=== PATIENT | female | born 1955 | race African-American/Black ===

== ENCOUNTER 2021-01-05 10:14 | Inpatient (IN) | payer BC ==
[~2021-01-05] VITALS: Ht 153.7 cm; Wt 66.7 kg
[2021-01-05] MEDS ORDERED: MAGNESIUM/ALUMINUM HYDROXIDE/SIMETHICONE 30ML UDC PO STA (10:56)
[2021-01-05] MEDS ORDERED: VISCOUS LIDOCAINE 2% 15 ML UDC PO STA (10:56)
[2021-01-05] MEDS ORDERED: ONDANSETRON HCL 4MG/2ML INJ IV STA (10:56)
[2021-01-05] MEDS ORDERED: PANTOPRAZOLE SODIUM 40 MG/VIAL IV STA (10:56)
[2021-01-05] MEDS ORDERED: SODIUM CHLORIDE 0.9% 1,000 ML IV ONE (11:00)
[2021-01-05 12:11] LABS: HEMATOCRIT. 40.2 % (36.0-48.0); HEMOGLOBIN. 13.8 g/dL (12.0-16.0); MEAN CORPUSCULAR HEMOGLOBIN 28.7 pg (28.0-32.0); MEAN CORPUSCULAR VOLUME 83.5 fL (81.0-99.0); MEAN PLATELET VOLUME 6.4 fl (7.4-10.4); PLATELET 755 x1000/uL (130-400); RED BLOOD CELL COUNT 4.82 mill/uL (4.2-5.4); RED CELL DISTRIBUTION WIDTH 12.5 % (11.6-14.6)
[2021-01-05 12:14] LABS: CHLORIDE 83 mEq/L (98-107)
[2021-01-05 12:18] LABS: ETHANOL BLOOD < 10 mg/dL
[2021-01-05 12:20] LABS: CLARITY URINE CLOUDY (CLEAR); COLOR URINE DARK YELLOW (YELLOW); KETONES URINE TRACE (NEGATIVE); LEUKOCYTE ESTERASE URINE 2+ (NEGATIVE); NITRITE URINE NEGATIVE (NEGATIVE); OCCULT BLOOD URINE TRACE (NEGATIVE); PROTEIN URINE TRACE (NEGATIVE); SPECIFIC GRAVITY URINE 1.017 (1.005-1.030)
[2021-01-05 12:37] LABS: *BENZODIAZEPINES SCREEN URINE NEGATIVE (NEGATIVE); PHENCYCLIDINE URINE SCREEN NEGATIVE (NEGATIVE)
[2021-01-05 12:39] LABS: *COCAINE SCREEN URINE NEGATIVE (NEGATIVE); METHADONE URINE SCREEN NEGATIVE (NEGATIVE)
[2021-01-05 12:40] LABS: *BARBITURATES SCREEN URINE NEGATIVE (NEGATIVE)
[2021-01-05 12:45] LABS: CANNABINOID URINE SCREEN NEGATIVE (NEGATIVE)
[2021-01-05 12:47] LABS: *AMPHETAMINES SCREEN URINE NEGATIVE (NEGATIVE)
[2021-01-05 12:54] LABS: OPIATES URINE SCREEN NEGATIVE (NEGATIVE)
[2021-01-05] MEDS ORDERED: LOPERAMIDE HCL 2MG CAPSULE PO NR (13:30)
[2021-01-05 13:36] LABS: PLATELET ESTIMATE INCREASED
[2021-01-05] MEDS ORDERED: CEFTRIAXONE 1 G PREMIX 50 ML IV ONE (13:45)
[2021-01-05 20:00] VITALS: BP 128/79
[2021-01-05] MEDS ORDERED: ACETAMINOPHEN 325MG TABLET PO PRN ×2 (20:00)
[2021-01-05] MEDS ORDERED: DIPHENHYDRAMINE 50MG/ML VIAL IV PRN (20:00)
[2021-01-05] MEDS ORDERED: CEFTRIAXONE 1 G PREMIX 50 ML IV SCH (20:00)
[2021-01-05] MEDS ORDERED: ONDANSETRON HCL 4MG/2ML INJ IV PRN (20:00)
[2021-01-05 20:16] VITALS: BP 128/79
[2021-01-05] MEDS ORDERED: LOPERAMIDE HCL 2MG CAPSULE PO PRN (20:30)
[2021-01-05] MEDS: SODIUM CHLORIDE 0.9% 1,000 ML IV SCH (21:24)
[2021-01-06] VITALS: BP 132/70
[2021-01-06 04:00] VITALS: BP 112/79
[2021-01-06] MEDS: SODIUM CHLORIDE 0.9% 1,000 ML IV SCH ×3 (06:08→20:00)
[2021-01-06 07:19] LABS: BASOPHILS % 0.1 % (0.0-2.0); EOSINOPHILS % 0.1 % (0.0-5.0); HEMATOCRIT. 38.6 % (36.0-48.0); HEMOGLOBIN. 12.9 g/dL (12.0-16.0); LYMPHOCYTES % 7.2 % (20.0-50.0); MEAN CORPUSCULAR HEMOGLOBIN 28.5 pg (28.0-32.0); MEAN CORPUSCULAR VOLUME 85.4 fL (81.0-99.0); MEAN PLATELET VOLUME 6.2 fl (7.4-10.4); MONOCYTES % 6.6 % (2.0-8.0); PLATELET 696 x1000/uL (130-400); RED BLOOD CELL COUNT 4.52 mill/uL (4.2-5.4); RED CELL DISTRIBUTION WIDTH 12.6 % (11.6-14.6)
[2021-01-06 07:37] LABS: CHLORIDE 92 mEq/L (98-107)
[2021-01-06 07:50] LABS: PHOSPHORUS 2.9 mg/dL (2.5-4.9)
[2021-01-06 08:33] VITALS: BP 102/63
[2021-01-06 12:00] VITALS: BP 99/59
[2021-01-06] MEDS: CEFTRIAXONE 1,000 MG in DEXTROSE 5% WATER 50 ML IV SCH (12:46)
[2021-01-06 16:00] VITALS: BP 122/83
[2021-01-06 20:00] VITALS: BP 121/75
[2021-01-07] VITALS: BP 118/84
[2021-01-07 04:00] VITALS: BP 124/71
[2021-01-07] MEDS: SODIUM CHLORIDE 0.9% 1,000 ML IV SCH ×2 (04:00→08:56)
[2021-01-07 07:36] LABS: CHLORIDE 99 mEq/L (98-107)
[2021-01-07 07:47] LABS: PHOSPHORUS 2.4 mg/dL (2.5-4.9)
[2021-01-07 08:00] VITALS: BP 124/84
[2021-01-07] MEDS ORDERED: SODIUM BICARBONATE 4% (2.4MEQ) 5ML VIAL IV ONE (10:30)
[2021-01-07] MEDS ORDERED: LIDOCAINE HCL 1% 20ML VIAL (Pyxis) INJ ONE (10:30)
[2021-01-07] MEDS ORDERED: POTASSIUM CHLORIDE 20MEQ TABLET SR PO SCH (11:30)
[2021-01-07 12:00] VITALS: BP 103/65
[2021-01-07] MEDS: CEFTRIAXONE 1,000 MG in DEXTROSE 5% WATER 50 ML IV SCH (14:14)
[2021-01-07 16:22] VITALS: BP 110/69
[2021-01-07 20:00] VITALS: BP 152/89
[2021-01-08] VITALS (9 sets, daily range): BP systolic 89–117; BP diastolic 55–87
[2021-01-08] MEDS ORDERED: MORPHINE SULFATE 2 MG/ML CPJ (NOT FOR IM USE) IV PRN (06:30)
[2021-01-08] MEDS ORDERED: MIDAZOLAM HCL 2 MG/2 ML VIAL ONE (07:35)
[2021-01-08] MEDS ORDERED: FENTANYL CITRATE/PF 50MCG/ML 2ML VIAL ONE (07:35)
[2021-01-08] MEDS ORDERED: PROPOFOL 200MG/20ML VIAL IV ONE (07:35)
[2021-01-08] MEDS ORDERED: ONDANSETRON HCL 4MG/2ML INJ ONE (07:36)
[2021-01-08] MEDS ORDERED: DEXAMETHASONE 4MG/ML 1ML VIAL ONE (07:36)
[2021-01-08] MEDS ORDERED: LABETALOL 5MG/ML SYR 20 MG/4 ML SYRINGE IV PRN (07:45)
[2021-01-08] MEDS ORDERED: ONDANSETRON HCL 4MG/2ML INJ IV PRN (07:45)
[2021-01-08] MEDS ORDERED: HYDROMORPHONE HCL/PF 2MG/ML CPJ IV PRN (07:45)
[2021-01-08] MEDS ORDERED: MEPERIDINE HCL/PF 25MG/ML CPJ IV PRN (07:45)
[2021-01-08] MEDS ORDERED: IPRATROPIUM/ALBUTEROL 0.5-3(2.5)MG/3ML NEB HHN PRN (12:15)
[2021-01-08] MEDS: CEFTRIAXONE 1,000 MG in DEXTROSE 5% WATER 50 ML IV SCH ×2 (13:41→18:04)
[2021-01-08] MEDS ORDERED: ATENOLOL 25MG TABLET PO NR (14:30)
[2021-01-08] MEDS ORDERED: SODIUM CHLORIDE 0.9% 500 ML IV ONE (16:53)
[2021-01-08] MEDS ORDERED: SODIUM CHLORIDE 0.9% 500 ML IV NR (17:00)
== END 2021-01-08 20:45 | disposition home or self-care (01) | DRG 744 ==
LOC: ER 10:18 → MICUSO 13:33 → 6WST 17:36
PROVIDERS: ADMIT Internal Medicine; ATTEND Internal Medicine
PROC: 0W9G3ZZ Drainage of Peritoneal Cavity, Percutaneous Approach (ICD-10-PCS; 2021-01-07)
PROC: 0UDB7ZZ Extraction of Endometrium, Via Natural or Artificial Opening (ICD-10-PCS; principal; 2021-01-08)
DX: C54.1 Malignant neoplasm of endometrium (principal); E43 Unspecified severe protein-calorie malnutrition; N17.9 Acute kidney failure, unspecified; E87.1 Hypo-osmolality and hyponatremia; N39.0 Urinary tract infection, site not specified; R18.8 Other ascites; C79.89 Secondary malignant neoplasm of other specified sites; E86.0 Dehydration; Z20.822 Contact with and (suspected) exposure to COVID-19; N13.5 Crossing vessel and stricture of ureter without hydronephrosis; I10 Essential (primary) hypertension; Z98.891 History of uterine scar from previous surgery; Z68.28 Body mass index [BMI] 28.0-28.9, adult
CPT/HCPCS: 36415; 49083; 74176; 76830; 76856; 80048; 80053; 80305; 80320; 81003; 83735; 84100; 85025; 86304; 87426; 88108; 88305; 88312; 93005; 99285; C1893; C9113; J0696; J1100; J2250; J2270; J2405; J2704; J3010; J3490; J7030; J7040; J7060; G0480

== ENCOUNTER 2021-01-10 12:08 | Inpatient (IN) | payer BC ==
[~2021-01-10] VITALS: Ht 165.1 cm; Wt 79.4 kg
[2021-01-10] MEDS ORDERED: FAMOTIDINE 20MG/2ML VIAL IV STA (12:30)
[2021-01-10] MEDS ORDERED: MORPHINE SULFATE 4 MG/ML CPJ (NOT FOR IM USE) IV STA (12:30)
[2021-01-10] MEDS ORDERED: SODIUM CHLORIDE 0.9% 1,000 ML IV ONE (12:30)
[2021-01-10] MEDS ORDERED: ONDANSETRON HCL 4MG/2ML INJ IV STA (12:30)
[2021-01-10 12:53] LABS: HEMATOCRIT. 38.1 % (36.0-48.0); HEMOGLOBIN. 13.1 g/dL (12.0-16.0); MEAN CORPUSCULAR HEMOGLOBIN 29.2 pg (28.0-32.0); MEAN CORPUSCULAR VOLUME 85.2 fL (81.0-99.0); MEAN PLATELET VOLUME 6.3 fl (7.4-10.4); PLATELET 614 x1000/uL (130-400); RED BLOOD CELL COUNT 4.48 mill/uL (4.2-5.4); RED CELL DISTRIBUTION WIDTH 12.7 % (11.6-14.6)
[2021-01-10 13:11] LABS: PROTHROMBIN TIME 11.1 sec (9.6-11.0)
[2021-01-10] MEDS ORDERED: MORPHINE SULFATE 2 MG/ML CPJ (NOT FOR IM USE) IV ONE (13:30)
[2021-01-10 13:47] LABS: PLATELET ESTIMATE INCREASED
[2021-01-10] MEDS ORDERED: CEFEPIME 1,000 MG in DEXTROSE 5% WATER 50 ML IV SCH (14:15)
[2021-01-10] MEDS ORDERED: VANCOMYCIN 1 G PREMIX 200 ML IV SCH (14:15)
[2021-01-10 15:25] LABS: CLARITY URINE CLOUDY (CLEAR); COLOR URINE DARK YELLOW (YELLOW); KETONES URINE TRACE (NEGATIVE); LEUKOCYTE ESTERASE URINE 1+ (NEGATIVE); NITRITE URINE NEGATIVE (NEGATIVE); OCCULT BLOOD URINE 2+ (NEGATIVE); PROTEIN URINE 1+ (NEGATIVE); SPECIFIC GRAVITY URINE 1.022 (1.005-1.030)
[2021-01-10 16:06] LABS: CHLORIDE 105 mEq/L (98-107)
[2021-01-10] MEDS ORDERED: ZOLPIDEM TARTRATE 5MG TABLET PO PRN (18:15)
[2021-01-10] MEDS ORDERED: ACETAMINOPHEN 325MG TABLET PO PRN ×2 (18:15)
[2021-01-10] MEDS ORDERED: DOCUSATE SODIUM 100MG CAPSULE PO PRN (18:15)
[2021-01-10] MEDS ORDERED: MAGNESIUM/ALUMINUM HYDROXIDE/SIMETHICONE 30ML UDC PO PRN (18:15)
[2021-01-10] MEDS ORDERED: IPRATROPIUM/ALBUTEROL 0.5-3(2.5)MG/3ML NEB NEB PRN (18:15)
[2021-01-10] MEDS ORDERED: TRAMADOL 50MG TABLET PO PRN (18:15)
[2021-01-10] MEDS ORDERED: NITROGLYCERIN 0.4MG TABLET SL SL PRN (18:15)
[2021-01-10] MEDS ORDERED: GUAIFENESIN 200MG/10ML SUGAR FREE UDC PO PRN (18:15)
[2021-01-10] MEDS ORDERED: CLONIDINE 0.1MG TABLET PO PRN (18:15)
[2021-01-10] MEDS ORDERED: NA PHOS,M-B/NA PHOS,DI-BA ENEMA 118ML PR PRN (18:15)
[2021-01-10] MEDS: DILTIAZEM HCL 60MG TABLET PO SCH (18:45)
[2021-01-10] MEDS ORDERED: PIPERACILLIN/TAZ 3.375G PREMIX 50 ML IV SCH (19:00)
[2021-01-10] MEDS ORDERED: VANCOMYCIN 500 MG PREMIX 100 ML IV NR (19:00)
[2021-01-10 22:00] VITALS: BP 124/85
[2021-01-10] MEDS: ENOXAPARIN 40MG/0.4ML SYR SUBCUT SCH (22:05)
[2021-01-10] MEDS: ASCORBIC ACID 500 MG TABLET PO SCH (22:05)
[2021-01-10] MEDS: FAMOTIDINE 20MG TABLET PO SCH (22:05)
[2021-01-10 23:28] LABS: CREATINE KINASE 51 IU/L (26-192)
[2021-01-10 23:29] LABS: CREATINE KINASE MB FRACTION 1.4 ng/mL (0.5-3.6)
[2021-01-10 23:50] LABS: *AMPHETAMINES SCREEN URINE NEGATIVE (NEGATIVE); *BARBITURATES SCREEN URINE NEGATIVE (NEGATIVE); *BENZODIAZEPINES SCREEN URINE PRESUMTIVE POSITIVE (NEGATIVE); *COCAINE SCREEN URINE NEGATIVE (NEGATIVE); METHADONE URINE SCREEN NEGATIVE (NEGATIVE); OPIATES URINE SCREEN PRESUMTIVE POSITIVE (NEGATIVE)
[2021-01-10 23:51] LABS: CANNABINOID URINE SCREEN NEGATIVE (NEGATIVE); PHENCYCLIDINE URINE SCREEN NEGATIVE (NEGATIVE)
[2021-01-11] VITALS: BP 119/53
[2021-01-11] MEDS ORDERED: ATEN-42 PO (01:53)
[2021-01-11] MEDS: ONDANSETRON HCL 4MG/2ML INJ IV PRN ×2 (03:20→08:55)
[2021-01-11] MEDS: PIPERACILLIN/TAZOBACTAM 3.375G in DEXT 5% WATER 50ML IV SCH ×3 (03:20→21:29)
[2021-01-11 04:00] VITALS: BP 127/56
[2021-01-11] MEDS: DILTIAZEM HCL 60MG TABLET PO SCH ×5 (05:50→18:00)
[2021-01-11] MEDS: VANCOMYCIN 750 MG PREMIX 150 ML IV SCH ×2 (06:08→17:58)
[2021-01-11 07:53] LABS: CREATINE KINASE 44 IU/L (26-192)
[2021-01-11 07:54] LABS: CREATINE KINASE MB FRACTION 1.6 ng/mL (0.5-3.6)
[2021-01-11 08:00] VITALS: BP 129/73
[2021-01-11] MEDS: CHOLECALCIFEROL (D3) 1000 UNIT TABLET PO SCH (08:47)
[2021-01-11] MEDS: ZINC SULFATE 220 MG ( 50 ) CAPSULE PO SCH (08:47)
[2021-01-11] MEDS: FAMOTIDINE 20MG TABLET PO SCH ×2 (08:47→21:00)
[2021-01-11] MEDS: ASPIRIN 325MG EC TABLET PO SCH (08:47)
[2021-01-11] MEDS: ASCORBIC ACID 500 MG TABLET PO SCH ×2 (08:47→21:00)
[2021-01-11 12:00] VITALS: BP 128/53
[2021-01-11] MEDS ORDERED: BARIUM SULFATE 176 GM SUSP.RECON ONE (14:38)
[2021-01-11] MEDS ORDERED: EZ-HD SUSPENSION(BARIUM SULFATE 340GM) PO ONE (14:40)
[2021-01-11 16:00] VITALS: BP 124/84
[2021-01-11 20:00] VITALS: BP 121/87
[2021-01-11] MEDS: ENOXAPARIN 40MG/0.4ML SYR SUBCUT SCH (21:01)
[2021-01-12] VITALS: BP 119/83
[2021-01-12 04:00] VITALS: BP 124/90
[2021-01-12] MEDS: PIPERACILLIN/TAZOBACTAM 3.375G in DEXT 5% WATER 50ML IV SCH ×3 (05:01→21:07)
[2021-01-12] MEDS: DILTIAZEM HCL 60MG TABLET PO SCH ×5 (06:00→23:46)
[2021-01-12] MEDS: VANCOMYCIN 750 MG PREMIX 150 ML IV SCH (06:52)
[2021-01-12 08:00] VITALS: BP 140/96
[2021-01-12] MEDS: CHOLECALCIFEROL (D3) 1000 UNIT TABLET PO SCH (08:08)
[2021-01-12] MEDS: ASCORBIC ACID 500 MG TABLET PO SCH ×2 (08:08→20:40)
[2021-01-12] MEDS: ZINC SULFATE 220 MG ( 50 ) CAPSULE PO SCH (08:08)
[2021-01-12] MEDS: ASPIRIN 325MG EC TABLET PO SCH (08:08)
[2021-01-12] MEDS: FAMOTIDINE 20MG TABLET PO SCH ×2 (08:08→20:40)
[2021-01-12 12:00] VITALS: BP 126/90
[2021-01-12 16:00] VITALS: BP 127/88
[2021-01-12] MEDS: VANCOMYCIN 1 G PREMIX 200 ML IV SCH (18:12)
[2021-01-12 20:00] VITALS: BP 137/87
[2021-01-13] VITALS: BP 139/89
[2021-01-13 04:00] VITALS: BP 122/89
[2021-01-13] MEDS: DILTIAZEM HCL 60MG TABLET PO SCH ×3 (05:40→17:50)
[2021-01-13] MEDS: PIPERACILLIN/TAZOBACTAM 3.375G in DEXT 5% WATER 50ML IV SCH ×3 (05:53→21:10)
[2021-01-13 07:02] LABS: HEMATOCRIT. 37.8 % (36.0-48.0); HEMOGLOBIN. 12.6 g/dL (12.0-16.0); MEAN CORPUSCULAR HEMOGLOBIN 28.7 pg (28.0-32.0); MEAN CORPUSCULAR VOLUME 86.2 fL (81.0-99.0); MEAN PLATELET VOLUME 6.4 fl (7.4-10.4); PLATELET 641 x1000/uL (130-400); RED BLOOD CELL COUNT 4.39 mill/uL (4.2-5.4); RED CELL DISTRIBUTION WIDTH 13.1 % (11.6-14.6)
[2021-01-13 07:28] LABS: PARTIAL THROMBOPLASTIN TIME < 21.0 sec (23.4-31.0); PROTHROMBIN TIME 11.1 sec (9.6-11.0)
[2021-01-13 08:00] VITALS: BP 120/82
[2021-01-13] MEDS ORDERED: MIDAZOLAM HCL 5 MG/5 ML VIAL ONE (10:43)
[2021-01-13] MEDS ORDERED: PROPOFOL 200MG/20ML VIAL IV ONE (10:44)
[2021-01-13] MEDS ORDERED: LIDOCAINE HCL/PF 1% 10 MG/ML 5ML VIAL ONE (10:44)
[2021-01-13] MEDS ORDERED: LIDOCAINE HCL 1% 20ML VIAL (Pyxis) INJ ONE (11:23)
[2021-01-13] MEDS ORDERED: PANTOPRAZOLE SODIUM 40 MG/VIAL IV NR (12:15)
[2021-01-13] MEDS ORDERED: NALOXONE HCL 0.4MG/ML VIAL IV PRN (12:30)
[2021-01-13 13:30] VITALS: BP 111/50
[2021-01-13] MEDS: ASCORBIC ACID 500 MG TABLET PO SCH ×2 (14:20→21:10)
[2021-01-13] MEDS: ZINC SULFATE 220 MG ( 50 ) CAPSULE PO SCH (14:20)
[2021-01-13] MEDS: SUCRALFATE 1 G/10 ML UDC PO SCH ×3 (14:20→21:10)
[2021-01-13] MEDS: CHOLECALCIFEROL (D3) 1000 UNIT TABLET PO SCH (14:20)
[2021-01-13] MEDS: VANCOMYCIN 1 G PREMIX 200 ML IV SCH (14:21)
[2021-01-13] MEDS: ONDANSETRON HCL 4MG/2ML INJ IV PRN (14:48)
[2021-01-13 15:45] LABS: PLATELET ESTIMATE INCREASED
[2021-01-13 16:00] VITALS: BP 117/83
[2021-01-13] MEDS: PANTOPRAZOLE SODIUM 40 MG/VIAL IV SCH (17:50)
[2021-01-13 20:00] VITALS: BP 137/78
[2021-01-14] VITALS: BP 130/88
[2021-01-14 04:00] VITALS: BP 154/98
[2021-01-14] MEDS: PIPERACILLIN/TAZOBACTAM 3.375G in DEXT 5% WATER 50ML IV SCH ×3 (05:08→21:57)
[2021-01-14] MEDS: PANTOPRAZOLE SODIUM 40 MG/VIAL IV SCH ×2 (05:09→17:57)
[2021-01-14] MEDS: VANCOMYCIN 1 G PREMIX 200 ML IV SCH (05:09)
[2021-01-14] MEDS: DILTIAZEM HCL 60MG TABLET PO SCH ×4 (05:10→17:57)
[2021-01-14] MEDS: SUCRALFATE 1 G/10 ML UDC PO SCH ×4 (06:10→21:56)
[2021-01-14 08:00] VITALS: BP_SYST 127; BP_SYST 131; BP_DIAS 85; BP_DIAS 87
[2021-01-14 08:07] LABS: CANCER ANTIGEN 125 88.7 U/mL (0.0-38.1)
[2021-01-14] MEDS: ASCORBIC ACID 500 MG TABLET PO SCH ×2 (08:25→21:56)
[2021-01-14] MEDS: CHOLECALCIFEROL (D3) 1000 UNIT TABLET PO SCH (08:25)
[2021-01-14] MEDS: ZINC SULFATE 220 MG ( 50 ) CAPSULE PO SCH (08:25)
[2021-01-14 12:00] VITALS: BP 131/87
[2021-01-14 16:00] VITALS: BP 137/60
[2021-01-14 20:00] VITALS: BP 104/60
[2021-01-15] VITALS: BP 135/80
[2021-01-15] MEDS: DILTIAZEM HCL 60MG TABLET PO SCH ×4 (00:11→19:14)
[2021-01-15] MEDS: VANCOMYCIN 1 G PREMIX 200 ML IV SCH (00:12)
[2021-01-15 04:00] VITALS: BP 109/62
[2021-01-15] MEDS: PANTOPRAZOLE SODIUM 40 MG/VIAL IV SCH ×2 (05:42→19:15)
[2021-01-15] MEDS: PIPERACILLIN/TAZOBACTAM 3.375G in DEXT 5% WATER 50ML IV SCH ×3 (05:42→22:31)
[2021-01-15] MEDS: SUCRALFATE 1 G/10 ML UDC PO SCH ×4 (06:11→22:31)
[2021-01-15 08:00] VITALS: BP 105/61
[2021-01-15] MEDS: ZINC SULFATE 220 MG ( 50 ) CAPSULE PO SCH (08:59)
[2021-01-15] MEDS: CHOLECALCIFEROL (D3) 1000 UNIT TABLET PO SCH (08:59)
[2021-01-15] MEDS: ASCORBIC ACID 500 MG TABLET PO SCH ×2 (08:59→22:31)
[2021-01-15] MEDS: ONDANSETRON HCL 4MG/2ML INJ IV PRN (10:06)
[2021-01-15 12:00] VITALS: BP 117/74
[2021-01-15 16:00] VITALS: BP 140/96
[2021-01-15 20:00] VITALS: BP 110/79
[2021-01-16] VITALS: BP 109/73
[2021-01-16 04:00] VITALS: BP 110/68
[2021-01-16] MEDS: PANTOPRAZOLE SODIUM 40 MG/VIAL IV SCH ×2 (06:19→18:36)
[2021-01-16] MEDS: SUCRALFATE 1 G/10 ML UDC PO SCH ×4 (06:19→21:11)
[2021-01-16] MEDS: DILTIAZEM HCL 60MG TABLET PO SCH ×4 (06:19→18:36)
[2021-01-16 08:00] VITALS: BP 122/84
[2021-01-16] MEDS: ZINC SULFATE 220 MG ( 50 ) CAPSULE PO SCH (09:00)
[2021-01-16] MEDS: CHOLECALCIFEROL (D3) 1000 UNIT TABLET PO SCH (09:00)
[2021-01-16] MEDS: ASCORBIC ACID 500 MG TABLET PO SCH ×2 (10:07→21:12)
[2021-01-16 12:00] VITALS: BP 114/76
[2021-01-16 16:00] VITALS: BP 122/80
[2021-01-16 20:00] VITALS: BP 119/70
[2021-01-16] MEDS: ENOXAPARIN 40MG/0.4ML SYR SUBCUT SCH (21:12)
[2021-01-17] VITALS: BP 111/65
[2021-01-17 04:00] VITALS: BP 121/78
[2021-01-17] MEDS: SUCRALFATE 1 G/10 ML UDC PO SCH (06:44)
[2021-01-17] MEDS: DILTIAZEM HCL 60MG TABLET PO SCH ×2 (06:45)
[2021-01-17] MEDS: PANTOPRAZOLE SODIUM 40 MG/VIAL IV SCH (06:52)
[2021-01-17 08:00] VITALS: BP 120/81
[2021-01-17] MEDS: ZINC SULFATE 220 MG ( 50 ) CAPSULE PO SCH (09:12)
[2021-01-17] MEDS: CHOLECALCIFEROL (D3) 1000 UNIT TABLET PO SCH (09:12)
[2021-01-17] MEDS: ASCORBIC ACID 500 MG TABLET PO SCH (09:12)
== END 2021-01-17 13:25 | disposition home health service (06) | DRG 193 ==
LOC: ER 12:23 → 8WST 16:31 → EDBEDREQ 16:59 → SUPCPDRO 18:08 → ENRESERV 19:33
PROVIDERS: ADMIT Internal Medicine; ATTEND Internal Medicine
PROC: 0DB78ZX Excision of Stomach, Pylorus, Via Natural or Artificial Opening Endoscopic, Diagnostic (ICD-10-PCS; principal; 2021-01-13)
PROC: 05HY33Z Insertion of Infusion Device into Upper Vein, Percutaneous Approach (ICD-10-PCS; 2021-01-13)
PROC: B54MZZA Ultrasonography of Right Upper Extremity Veins, Guidance (ICD-10-PCS; 2021-01-13)
PROC: 0DB38ZX Excision of Lower Esophagus, Via Natural or Artificial Opening Endoscopic, Diagnostic (ICD-10-PCS; 2021-01-13)
DX: J18.9 Pneumonia, unspecified organism (principal); E43 Unspecified severe protein-calorie malnutrition; N39.0 Urinary tract infection, site not specified; R18.8 Other ascites; K22.10 Ulcer of esophagus without bleeding; I10 Essential (primary) hypertension; K22.0 Achalasia of cardia; K22.8 Other specified diseases of esophagus; R47.02 Dysphasia; K44.9 Diaphragmatic hernia without obstruction or gangrene; Z20.822 Contact with and (suspected) exposure to COVID-19; K22.2 Esophageal obstruction; K26.9 Duodenal ulcer, unspecified as acute or chronic, without hemorrhage or perforation; K29.60 Other gastritis without bleeding; Z60.2 Problems related to living alone; C55 Malignant neoplasm of uterus, part unspecified; Y95 Nosocomial condition; Z87.440 Personal history of urinary (tract) infections; Z68.29 Body mass index [BMI] 29.0-29.9, adult
CPT/HCPCS: 36415; 71045; 74176; 74220; 76937; 80048; 80053; 80202; 80305; 81003; 82105; 82378; 82550; 82553; 84484; 85025; 86301; 86304; 86850; 86900; 87426; 88305; 88312; 88313; 93005; 93306; 93970; 97110; 97116; 97162; 97166; 99285; C1725; C1893; C9113; J0692; J1650; J2250; J2270; J2405; J2543; J2704; J3370; J3490; J7030; J7040; J7060